=== PATIENT | female | born 1945 | race Caucasian/White ===

== ENCOUNTER 2017-12-15 16:49 | Inpatient (IN) | payer MEDICARE ==
[~2017-12-15] VITALS: Ht 167.6 cm; Wt 120.5 kg
[2017-12-15] VITALS (24 sets, daily range): BP systolic 83–126; BP diastolic 46–74; BMI 31.5
[2017-12-15 17:51] LABS: BASOPHILS 0.1 % (0-2); EOSINOPHILS 0 % (0-7); HEMATOCRIT 33.1 % (36.0-48.0); HEMOGLOBIN 10.9 g/dL (12-16); LYMPHOCYTES 19.1 % (15-50); MCH 32.6 pg (26.0-34.0); MCHC 32.9 g/dL (31.0-37.0); MCV 99.1 fL (80.0-100.0); MEAN PLATELET VOLUME 8.9 fL (7.4-10.4); MONOCYTES 11.9 % (2-11); NEUTROPHILS 67.9 % (40-80); PLATELET COUNT 111 10x3/uL (130-400); RBC 3.34 10x6/uL (4.00-5.40); RDW 14.3 % (11.5-14.5); WBC 19.9 10x3/uL (4.8-10.8)
[2017-12-15 18:06] LABS: ALKALINE PHOSPHATASE 39 U/L (46-116); ALT (SGPT) 13 U/L (10-68); CALC OSMOLALITY 284 mosm/kg (275-300); CALCIUM 9.3 mg/dL (8.5-10.1); CARBON DIOXIDE 30.6 mmol/L (21.0-32.0); CHLORIDE - SERUM 101 mmol/L (98-107); CREATININE - SERUM 1.3 mg/dL (0.6-1.3); GLUCOSE 122 mg/dL (74-106); POTASSIUM - SERUM 5.1 mmol/L (3.5-5.1); SODIUM 137 mmol/L (136-145); UREA NITROGEN 41 mg/dL (7-18); eGFR NON AFRICAN AMERICAN 42 mL/min (90-120)
[2017-12-15 18:18] LABS: CKMB 5.8 U/L (0.0-3.6); CREATINE KINASE 785 UL (21-215); PRO BNP 757 pg/mL (0-125)
[2017-12-15 18:29] LABS: TROPONIN-I < 0.017 ng/mL (0.000-0.060)
[2017-12-15 21:00] LABS: APPEARANCE CLEAR (CLEAR); BILIRUBIN NEGATIVE (NEGATIVE); COLOR YELLOW (YELLOW); GLUCOSE NEGATIVE (NEGATIVE); KETONE NEGATIVE (NEGATIVE); NITRITE NEGATIVE (NEGATIVE); PROTEIN NEGATIVE (NEGATIVE); UROBILINOGEN NORMAL (NORMAL)
[2017-12-16] VITALS (78 sets, daily range): BP systolic 90–137; BP diastolic 45–97; Ht 167.6 cm; Wt 120.5 kg
[2017-12-16 05:23] LABS: BASOPHILS 0.1 % (0-2); EOSINOPHILS 0 % (0-7); HEMATOCRIT 32.4 % (36.0-48.0); HEMOGLOBIN 10.3 g/dL (12-16); IMMATURE GRANULOCYTES 1.3 % (0-5); LYMPHOCYTES 13.7 % (15-50); MCH 31.8 pg (26.0-34.0); MCHC 31.8 g/dL (31.0-37.0); NEUTROPHILS 74.9 % (40-80); PLATELET COUNT 127 10x3/uL (130-400); RBC 3.24 10x6/uL (4.00-5.40); RDW 14.1 % (11.5-14.5); WBC 15.2 10x3/uL (4.8-10.8)
[2017-12-16 05:31] LABS: INR 1.29 (0.85-1.17); PROTIME 15.7 SECONDS (11.6-15.0)
[2017-12-16 05:52] LABS: % SATURATION 6 % (15-55); IRON 15 ug/dl (35-150); TOTAL IRON BIND CAPACITY 215 ug/dl (260-445); UNSAT IRON BIND CAPACITY 200 ug/dl (150-375)
[2017-12-16 05:56] LABS: ALBUMIN 1.9 g/dL (3.4-5.0); ALKALINE PHOSPHATASE 38 U/L (46-116); ALT (SGPT) 14 U/L (10-68); BILIRUBIN - TOTAL 0.49 mg/dL (0.2-1.3); CALC OSMOLALITY 281 mosm/kg (275-300); CALCIUM 9.5 mg/dL (8.5-10.1); CARBON DIOXIDE 31.7 mmol/L (21.0-32.0); CHLORIDE - SERUM 101 mmol/L (98-107); FERRITIN 447 ng/mL (3-244); GLUCOSE 117 mg/dL (74-106); LDH 160 U/L (81-234); MAGNESIUM - SERUM 1.9 mg/dL (1.8-2.4); PHOSPHOROUS 3.7 mg/dL (2.5-4.9); PROTEIN - SERUM 6.1 g/dL (6.4-8.2); SODIUM 137 mmol/L (136-145); THYROID STIMULATING HORMONE 1.74 uIU/mL (0.36-3.74); UREA NITROGEN 33 mg/dL (7-18); eGFR NON AFRICAN AMERICAN 87 mL/min (90-120)
[2017-12-16 05:57] LABS: CREATININE - SERUM 0.7 mg/dL (0.6-1.3)
[2017-12-17] VITALS (19 sets, daily range): BP systolic 93–153; BP diastolic 38–108
[2017-12-17 04:50] LABS: BASOPHILS 0 % (0-2); EOSINOPHILS 0.1 % (0-7); HEMATOCRIT 27.2 % (36.0-48.0); HEMOGLOBIN 8.5 g/dL (12-16); IMMATURE GRANULOCYTES 0.8 % (0-5); LYMPHOCYTES 37.1 % (15-50); MCH 31.7 pg (26.0-34.0); MCHC 31.3 g/dL (31.0-37.0); MCV 101.5 fL (80.0-100.0); MEAN PLATELET VOLUME 8.9 fL (7.4-10.4); MONOCYTES 9.1 % (2-11); NEUTROPHILS 52.9 % (40-80); RBC 2.68 10x6/uL (4.00-5.40); RDW 14.2 % (11.5-14.5)
[2017-12-17 05:04] LABS: CALCIUM 9.4 mg/dL (8.5-10.1); CHLORIDE - SERUM 105 mmol/L (98-107); GLUCOSE 76 mg/dL (74-106); POTASSIUM - SERUM 4.5 mmol/L (3.5-5.1); SODIUM 139 mmol/L (136-145)
[2017-12-17 05:06] LABS: PLATELET COUNT 94 10x3/uL (130-400); WBC 8.7 10x3/uL (4.8-10.8)
[2017-12-17 05:16] LABS: CALC OSMOLALITY 279 mosm/kg (275-300); CREATININE - SERUM 0.5 mg/dL (0.6-1.3); UREA NITROGEN 21 mg/dL (7-18); eGFR NON AFRICAN AMERICAN > 90 mL/min (90-120)
[2017-12-17 05:59] LABS: PLATELET ESTIMATE DECREASED
[2017-12-17] MEDS ORDERED: NORVASC2.5 MG PO (10:11)
[2017-12-17] MEDS ORDERED: LISINOPRIL5 MG PO (10:11)
[2017-12-17] MEDS ORDERED: PROTONIX40 MG PO (10:12)
[2017-12-17] MEDS ORDERED: RISPERDAL3 MG PO (10:12)
[2017-12-17] MEDS ORDERED: SEROQUEL100 MG PO (10:13)
[2017-12-17] MEDS ORDERED: DEPAKOTE500 MG PO ×2 (10:15→10:27)
[2017-12-17] MEDS ORDERED: NOVOLOG100 U/M1 SC (10:17)
[2017-12-17] MEDS ORDERED: CLARITIN 10 MG10 MG PO (10:18)
[2017-12-17] MEDS ORDERED: GLIPIZIDE10 MG PO (10:18)
[2017-12-17] MEDS ORDERED: ACETAMINOPHEN325 MG PO (10:19)
[2017-12-17] MEDS ORDERED: MUCINEX600 MG PO (10:19)
[2017-12-17] MEDS ORDERED: PROVENTIL/2.5 MG/3 M INH (10:20)
[2017-12-17] MEDS ORDERED: ANUSOL-HC 2.5%30 GM TOPICAL (10:21)
[2017-12-17] MEDS ORDERED: IPRAT-ALBUT 0.5-3 ML UPD (10:22)
[2017-12-17] MEDS ORDERED: ATROVENT HFA12.9 GM INH (10:22)
[2017-12-17] MEDS ORDERED: VENTOLIN HFA18 GM INH (10:23)
[2017-12-17] MEDS ORDERED: CELEXA10 MG PO (10:23)
[2017-12-17] MEDS ORDERED: DESERYL100 MG PO (10:24)
[2017-12-17] MEDS ORDERED: FUROSEMIDE20 MG PO (10:24)
[2017-12-18] VITALS: BP 110/50
[2017-12-18 04:00] VITALS: BP 105/44
[2017-12-18 04:18] LABS: BASOPHILS 0.2 % (0-2); EOSINOPHILS 0.5 % (0-7); HEMATOCRIT 25.2 % (36.0-48.0); HEMOGLOBIN 7.8 g/dL (12-16); IMMATURE GRANULOCYTES 0.5 % (0-5); LYMPHOCYTES 56.1 % (15-50); MCV 103.3 fL (80.0-100.0); MEAN PLATELET VOLUME 8.6 fL (7.4-10.4); MONOCYTES 6.6 % (2-11); NEUTROPHILS 36.1 % (40-80); PLATELET COUNT 88 10x3/uL (130-400); RBC 2.44 10x6/uL (4.00-5.40); RDW 14.1 % (11.5-14.5)
[2017-12-18 04:19] LABS: WBC 5.8 10x3/uL (4.8-10.8)
[2017-12-18 04:35] LABS: ALBUMIN 1.5 g/dL (3.4-5.0); ALKALINE PHOSPHATASE 32 U/L (46-116); ALT (SGPT) 14 U/L (10-68); CALC OSMOLALITY 285 mosm/kg (275-300); CARBON DIOXIDE 34.2 mmol/L (21.0-32.0); CHLORIDE - SERUM 107 mmol/L (98-107); CREATININE - SERUM 0.5 mg/dL (0.6-1.3); GLUCOSE 83 mg/dL (74-106); INR 1.23 (0.85-1.17); LDH 108 U/L (81-234); MAGNESIUM - SERUM 1.6 mg/dL (1.8-2.4); PHOSPHOROUS 2.9 mg/dL (2.5-4.9); POTASSIUM - SERUM 4.1 mmol/L (3.5-5.1); PROTEIN - SERUM 4.8 g/dL (6.4-8.2); PROTIME 15.1 SECONDS (11.6-15.0); SODIUM 144 mmol/L (136-145); UREA NITROGEN 13 mg/dL (7-18); eGFR NON AFRICAN AMERICAN > 90 mL/min (90-120)
[2017-12-18 04:36] LABS: APTT 43.1 SECONDS (22.8-39.4); D-DIMER-QUANTITATIVE 0.63 ug/mLFEU (0.20-0.54)
[2017-12-18 07:53] VITALS: BP 118/52
[2017-12-18 11:00] VITALS: BP 116/45
[2017-12-18 14:19] LABS: FUNGUS STAIN Final report (())
[2017-12-18 16:18] VITALS: BP 121/56
[2017-12-18 17:12] LABS: AFB SPECIMEN PROCESSING Concentration (())
[2017-12-18 21:05] VITALS: BP 135/77
[2017-12-19 05:20] VITALS: BP 111/61
[2017-12-19 05:27] LABS: BASOPHILS 0.2 % (0-2); EOSINOPHILS 1.4 % (0-7); HEMOGLOBIN 9.2 g/dL (12-16); LYMPHOCYTES 58.6 % (15-50); MCH 30.9 pg (26.0-34.0); MCHC 30.7 g/dL (31.0-37.0); MEAN PLATELET VOLUME 8.4 fL (7.4-10.4); MONOCYTES 7.9 % (2-11); NEUTROPHILS 30.9 % (40-80); PLATELET COUNT 94 10x3/uL (130-400); RDW 15.4 % (11.5-14.5); WBC 5.8 10x3/uL (4.8-10.8)
[2017-12-19 05:34] LABS: MCV 100.7 fL (80.0-100.0); RBC 2.98 10x6/uL (4.00-5.40)
[2017-12-19 05:35] LABS: CALC OSMOLALITY 282 mosm/kg (275-300); CALCIUM 8.7 mg/dL (8.5-10.1); CARBON DIOXIDE 34.8 mmol/L (21.0-32.0); CHLORIDE - SERUM 106 mmol/L (98-107); GLUCOSE 79 mg/dL (74-106); POTASSIUM - SERUM 4.1 mmol/L (3.5-5.1); SODIUM 143 mmol/L (136-145); UREA NITROGEN 11 mg/dL (7-18)
[2017-12-19 05:36] LABS: CREATININE - SERUM 0.3 mg/dL (0.6-1.3); eGFR NON AFRICAN AMERICAN > 90 mL/min (90-120)
[2017-12-19 07:34] VITALS: BP 120/61
[2017-12-19 11:00] VITALS: BP 116/64
[2017-12-19 15:13] VITALS: BP 122/68
[2017-12-19 20:00] VITALS: BP 142/73
[2017-12-20 04:00] VITALS: BP 137/57
[2017-12-20 05:26] LABS: BASOPHILS 0.5 % (0-2); EOSINOPHILS 2.4 % (0-7); HEMATOCRIT 30.7 % (36.0-48.0); HEMOGLOBIN 9.5 g/dL (12-16); IMMATURE GRANULOCYTES 0.9 % (0-5); LYMPHOCYTES 57.8 % (15-50); MCH 31.3 pg (26.0-34.0); MCHC 30.9 g/dL (31.0-37.0); MEAN PLATELET VOLUME 8.9 fL (7.4-10.4); MONOCYTES 9.2 % (2-11); NEUTROPHILS 29.2 % (40-80); PLATELET COUNT 96 10x3/uL (130-400); RBC 3.04 10x6/uL (4.00-5.40); RDW 14.6 % (11.5-14.5); WBC 5.7 10x3/uL (4.8-10.8)
[2017-12-20 05:49] LABS: CALCIUM 8.5 mg/dL (8.5-10.1); CARBON DIOXIDE 35.4 mmol/L (21.0-32.0); CHLORIDE - SERUM 106 mmol/L (98-107); GLUCOSE 73 mg/dL (74-106); POTASSIUM - SERUM 3.8 mmol/L (3.5-5.1); SODIUM 144 mmol/L (136-145)
[2017-12-20 05:50] LABS: CALC OSMOLALITY 283 mosm/kg (275-300); CREATININE - SERUM 0.4 mg/dL (0.6-1.3); UREA NITROGEN 8 mg/dL (7-18); eGFR NON AFRICAN AMERICAN > 90 mL/min (90-120)
[2017-12-20 07:35] VITALS: BP 141/67
[2017-12-20 16:17] VITALS: BP 136/64
[2017-12-20 20:00] VITALS: BP 123/61
[2017-12-21 04:00] VITALS: BP 109/55
[2017-12-21 05:03] LABS: BASOPHILS 0.1 % (0-2); EOSINOPHILS 3.3 % (0-7); HEMATOCRIT 33.9 % (36.0-48.0); HEMOGLOBIN 10.6 g/dL (12-16); IMMATURE GRANULOCYTES 0.4 % (0-5); LYMPHOCYTES 50.8 % (15-50); MCH 31.7 pg (26.0-34.0); MCHC 31.3 g/dL (31.0-37.0); MCV 101.5 fL (80.0-100.0); MEAN PLATELET VOLUME 8.5 fL (7.4-10.4); MONOCYTES 10.3 % (2-11); NEUTROPHILS 35.1 % (40-80); PLATELET COUNT 113 10x3/uL (130-400); RBC 3.34 10x6/uL (4.00-5.40); RDW 14.3 % (11.5-14.5); WBC 6.7 10x3/uL (4.8-10.8)
[2017-12-21 05:27] LABS: INR 1.07 (0.85-1.17); PROTIME 13.5 SECONDS (11.6-15.0)
[2017-12-21 05:35] LABS: CALC OSMOLALITY 281 mosm/kg (275-300); CARBON DIOXIDE 38.5 mmol/L (21.0-32.0); CHLORIDE - SERUM 104 mmol/L (98-107); CREATININE - SERUM 0.4 mg/dL (0.6-1.3); GLUCOSE 77 mg/dL (74-106); LDH 118 U/L (81-234); POTASSIUM - SERUM 3.8 mmol/L (3.5-5.1); PROTEIN - SERUM 5.2 g/dL (6.4-8.2); SODIUM 143 mmol/L (136-145); UREA NITROGEN 7 mg/dL (7-18); eGFR NON AFRICAN AMERICAN > 90 mL/min (90-120)
[2017-12-21 05:43] LABS: APTT 21.7 SECONDS (22.8-39.4)
[2017-12-21 08:35] VITALS: BP 105/57
[2017-12-21 15:34] VITALS: BP 122/64
[2017-12-21 15:40] LABS: PROTEIN - BODY FLUID 2.2 G/DL
[2017-12-21 18:54] LABS: EOS BF 3 %; MACROPHAGES BF 9 %; MESOTHELIALS BF 4 %; NEUT - BF 8 %
[2017-12-21 19:00] VITALS: BP 121/58
[2017-12-22 04:00] VITALS: BP 152/66
[2017-12-22 04:45] LABS: BASOPHILS 0.1 % (0-2); EOSINOPHILS 2.8 % (0-7); HEMATOCRIT 32.1 % (36.0-48.0); HEMOGLOBIN 10.1 g/dL (12-16); IMMATURE GRANULOCYTES 0.4 % (0-5); LYMPHOCYTES 54.5 % (15-50); MCH 31.4 pg (26.0-34.0); MCHC 31.5 g/dL (31.0-37.0); MCV 99.7 fL (80.0-100.0); MEAN PLATELET VOLUME 8.8 fL (7.4-10.4); MONOCYTES 7.5 % (2-11); NEUTROPHILS 34.7 % (40-80); PLATELET COUNT 129 10x3/uL (130-400); RBC 3.22 10x6/uL (4.00-5.40); RDW 14.2 % (11.5-14.5); WBC 7.2 10x3/uL (4.8-10.8)
[2017-12-22 05:01] LABS: ALBUMIN 1.8 g/dL (3.4-5.0); ALKALINE PHOSPHATASE 64 U/L (46-116); ALT (SGPT) 17 U/L (10-68); BILIRUBIN - TOTAL 0.33 mg/dL (0.2-1.3); CALC OSMOLALITY 278 mosm/kg (275-300); CARBON DIOXIDE 38.7 mmol/L (21.0-32.0); CHLORIDE - SERUM 102 mmol/L (98-107); CREATININE - SERUM 0.5 mg/dL (0.6-1.3); GLUCOSE 89 mg/dL (74-106); POTASSIUM - SERUM 3.6 mmol/L (3.5-5.1); PROTEIN - SERUM 5.4 g/dL (6.4-8.2); SODIUM 141 mmol/L (136-145); eGFR NON AFRICAN AMERICAN > 90 mL/min (90-120)
[2017-12-22 05:08] LABS: UREA NITROGEN 11 mg/dL (7-18)
[2017-12-22 08:27] VITALS: BP 116/56
[2017-12-22 11:46] VITALS: BP 122/60
[2017-12-22 15:34] VITALS: BP 130/75
[2017-12-22 20:00] VITALS: BP 120/62
[2017-12-23] VITALS: BP 132/57
[2017-12-23 04:00] VITALS: BP 111/83
[2017-12-23 04:55] LABS: BASOPHILS 0.2 % (0-2); EOSINOPHILS 3.5 % (0-7); HEMATOCRIT 33.9 % (36.0-48.0); HEMOGLOBIN 10.5 g/dL (12-16); IMMATURE GRANULOCYTES 0.5 % (0-5); LYMPHOCYTES 59.8 % (15-50); MCH 31.7 pg (26.0-34.0); MEAN PLATELET VOLUME 8.7 fL (7.4-10.4); MONOCYTES 9.4 % (2-11); NEUTROPHILS 26.6 % (40-80); PLATELET COUNT 148 10x3/uL (130-400); RBC 3.31 10x6/uL (4.00-5.40); RDW 14.2 % (11.5-14.5); WBC 6.6 10x3/uL (4.8-10.8)
[2017-12-23 05:07] LABS: MCV 102.4 fL (80.0-100.0)
[2017-12-23 05:09] LABS: ALKALINE PHOSPHATASE 63 U/L (46-116); ALT (SGPT) 15 U/L (10-68); CALC OSMOLALITY 287 mosm/kg (275-300); CALCIUM 9.3 mg/dL (8.5-10.1); CARBON DIOXIDE 38.4 mmol/L (21.0-32.0); CHLORIDE - SERUM 104 mmol/L (98-107); CREATININE - SERUM 0.5 mg/dL (0.6-1.3); GLUCOSE 92 mg/dL (74-106); POTASSIUM - SERUM 3.6 mmol/L (3.5-5.1); PROTEIN - SERUM 5.6 g/dL (6.4-8.2); SODIUM 145 mmol/L (136-145); UREA NITROGEN 9 mg/dL (7-18); eGFR NON AFRICAN AMERICAN > 90 mL/min (90-120)
[2017-12-23 07:49] VITALS: BP 122/63
[2017-12-23 11:15] VITALS: BP 147/83
[2017-12-23 15:14] VITALS: BP 127/58
[2017-12-23 17:11] LABS: AFB SPECIMEN PROCESSING Not Indicated (())
[2017-12-23 20:00] VITALS: BP 101/56
[2017-12-24 04:00] VITALS: BP 98/57
[2017-12-24 05:46] LABS: BASOPHILS 0.1 % (0-2); EOSINOPHILS 2.6 % (0-7); HEMATOCRIT 33.4 % (36.0-48.0); HEMOGLOBIN 10.5 g/dL (12-16); IMMATURE GRANULOCYTES 0.3 % (0-5); LYMPHOCYTES 59.2 % (15-50); MCH 31.6 pg (26.0-34.0); MCHC 31.4 g/dL (31.0-37.0); MCV 100.6 fL (80.0-100.0); MEAN PLATELET VOLUME 8.9 fL (7.4-10.4); MONOCYTES 8.7 % (2-11); NEUTROPHILS 29.1 % (40-80); PLATELET COUNT 149 10x3/uL (130-400); RBC 3.32 10x6/uL (4.00-5.40); RDW 14.1 % (11.5-14.5)
[2017-12-24 05:58] LABS: ALKALINE PHOSPHATASE 99 U/L (46-116); CALC OSMOLALITY 281 mosm/kg (275-300); CARBON DIOXIDE 37.5 mmol/L (21.0-32.0); CHLORIDE - SERUM 99 mmol/L (98-107); CREATININE - SERUM 0.5 mg/dL (0.6-1.3); GLUCOSE 91 mg/dL (74-106); POTASSIUM - SERUM 3.3 mmol/L (3.5-5.1); PROTEIN - SERUM 5.7 g/dL (6.4-8.2); SODIUM 142 mmol/L (136-145); UREA NITROGEN 9 mg/dL (7-18); eGFR NON AFRICAN AMERICAN > 90 mL/min (90-120)
[2017-12-24 06:07] LABS: ALT (SGPT) 25 U/L (10-68)
[2017-12-24 07:38] VITALS: BP 109/59
[2017-12-24 11:14] VITALS: BP 103/64
[2017-12-24 11:19] LABS: FOLATE (FOLIC ACID) - SERUM 6.7 ng/mL (>3.0)
[2017-12-24 15:23] VITALS: BP 109/60
[2017-12-24 20:00] VITALS: BP 98/50
[2017-12-25 04:00] VITALS: BP 92/51
[2017-12-25 05:41] LABS: BASOPHILS 0.1 % (0-2); EOSINOPHILS 2.1 % (0-7); HEMATOCRIT 34.8 % (36.0-48.0); HEMOGLOBIN 10.7 g/dL (12-16); IMMATURE GRANULOCYTES 0.3 % (0-5); LYMPHOCYTES 46.5 % (15-50); MCH 31.2 pg (26.0-34.0); MCHC 30.7 g/dL (31.0-37.0); MCV 101.5 fL (80.0-100.0); MEAN PLATELET VOLUME 8.9 fL (7.4-10.4); MONOCYTES 7.1 % (2-11); NEUTROPHILS 43.9 % (40-80); PLATELET COUNT 139 10x3/uL (130-400); RBC 3.43 10x6/uL (4.00-5.40); RDW 14.2 % (11.5-14.5); WBC 7.7 10x3/uL (4.8-10.8)
[2017-12-25 06:02] LABS: ALBUMIN 2.1 g/dL (3.4-5.0); ALKALINE PHOSPHATASE 81 U/L (46-116); BILIRUBIN - TOTAL 0.38 mg/dL (0.2-1.3); CARBON DIOXIDE 39.8 mmol/L (21.0-32.0); CHLORIDE - SERUM 101 mmol/L (98-107); CREATININE - SERUM 0.6 mg/dL (0.6-1.3); POTASSIUM - SERUM 3.9 mmol/L (3.5-5.1); PROTEIN - SERUM 5.8 g/dL (6.4-8.2); SODIUM 144 mmol/L (136-145); eGFR NON AFRICAN AMERICAN > 90 mL/min (90-120)
[2017-12-25 06:03] LABS: ALT (SGPT) 14 U/L (10-68); CALC OSMOLALITY 290 mosm/kg (275-300); GLUCOSE 148 mg/dL (74-106); UREA NITROGEN 14 mg/dL (7-18)
[2017-12-25 09:26] VITALS: BP 115/60
[2017-12-25 12:03] VITALS: BP 120/70
[2017-12-25 15:57] VITALS: BP 120/76
[2017-12-25 20:00] VITALS: BP 111/70
[2017-12-26] VITALS: BP 115/60
[2017-12-26 04:00] VITALS: BP 104/47
[2017-12-26 05:24] LABS: BASOPHILS 0.2 % (0-2); EOSINOPHILS 2.3 % (0-7); HEMATOCRIT 31.8 % (36.0-48.0); HEMOGLOBIN 9.8 g/dL (12-16); IMMATURE GRANULOCYTES 0.2 % (0-5); LYMPHOCYTES 63.5 % (15-50); MCH 31.3 pg (26.0-34.0); MCHC 30.8 g/dL (31.0-37.0); MCV 101.6 fL (80.0-100.0); NEUTROPHILS 27.8 % (40-80); PLATELET COUNT 144 10x3/uL (130-400); RBC 3.13 10x6/uL (4.00-5.40); RDW 14.3 % (11.5-14.5); WBC 8.2 10x3/uL (4.8-10.8)
[2017-12-26 05:48] LABS: ALKALINE PHOSPHATASE 68 U/L (46-116); ALT (SGPT) 12 U/L (10-68); BILIRUBIN - TOTAL 0.35 mg/dL (0.2-1.3); CALCIUM 9.4 mg/dL (8.5-10.1); CARBON DIOXIDE 39.7 mmol/L (21.0-32.0); CHLORIDE - SERUM 100 mmol/L (98-107); POTASSIUM - SERUM 3.7 mmol/L (3.5-5.1); PROTEIN - SERUM 5.6 g/dL (6.4-8.2); SODIUM 142 mmol/L (136-145)
[2017-12-26 05:49] LABS: CALC OSMOLALITY 284 mosm/kg (275-300); CREATININE - SERUM 0.4 mg/dL (0.6-1.3); GLUCOSE 100 mg/dL (74-106); UREA NITROGEN 18 mg/dL (7-18); eGFR NON AFRICAN AMERICAN > 90 mL/min (90-120)
[2017-12-26 08:07] VITALS: BP 126/72
[2017-12-26 12:13] VITALS: BP 112/65
[2017-12-26 17:23] VITALS: BP 99/55
[2017-12-26 21:24] VITALS: BP 93/43
[2017-12-27 07:57] VITALS: BP 121/59
[2017-12-27 11:23] VITALS: BP 117/61
[2017-12-27] MEDS ORDERED: K-TAB10 MEQ PO (13:56)
[2017-12-27] MEDS ORDERED: BUMEX 1 MG TAB1 MG PO (13:56)
[2017-12-27] MEDS ORDERED: PULMICORT0.5 MG/21 UPD (13:56)
[2017-12-27] MEDS ORDERED: BROVANA15 MCG/2 M INH (13:57)
[2017-12-27] MEDS ORDERED: DIFLUCAN100 MG PO (13:58)
[2017-12-27 21:12] VITALS: BP 101/56
[2017-12-28 01:18] VITALS: BP 104/53
[2017-12-28 05:50] VITALS: BP 96/52
[2017-12-28 07:40] VITALS: BP 108/62
[2017-12-28 10:44] VITALS: BP 102/59
[2017-12-30 11:21] LABS: FUNGUS STAIN Final report (())
[2018-01-14 08:19] LABS: FUNGUS MYCOLOGY CULTURE Final report (())
[2018-01-25 12:10] LABS: FUNGUS MYCOLOGY CULTURE Final report (())
[2018-02-10 12:18] LABS: ACID FAST CULTURE Negative (()); ACID FAST SMEAR Negative (())
[2018-02-10 13:19] LABS: ACID FAST CULTURE Negative (()); ACID FAST SMEAR Negative (())
== END 2017-12-28 17:53 | DRG 853 ==
LOC: D.M2 16:49 → D.ICU 16:49 → D.M2 12-17 16:48
PROVIDERS: Family Medicine; Internal Medicine Nephrology; Internal Medicine Pulmonary Disease
PROC: 5A09357 Assistance with Respiratory Ventilation, Less than 24 Consecutive Hours, Continuous Positive Airway Pressure (ICD-10-PCS; principal; 2017-12-15)
PROC: 0BC Respiratory System, Extirpation (ICD-10-PCS; 2017-12-16)
PROC: 05HY33Z Insertion of Infusion Device into Upper Vein, Percutaneous Approach (ICD-10-PCS; 2017-12-17)
PROC: 0W9B3ZZ Drainage of Left Pleural Cavity, Percutaneous Approach (ICD-10-PCS; 2017-12-21)
DX: A41.9 Sepsis, unspecified organism (principal); J18.9 Pneumonia, unspecified organism; R65.21 Severe sepsis with septic shock; G93.41 Metabolic encephalopathy; J96.01 Acute respiratory failure with hypoxia; J96.02 Acute respiratory failure with hypercapnia; N17.9 Acute kidney failure, unspecified; T17.590A Other foreign object in bronchus causing asphyxiation, initial encounter; J44.1 Chronic obstructive pulmonary disease with (acute) exacerbation; J44.0 Chronic obstructive pulmonary disease with (acute) lower respiratory infection; J98.11 Atelectasis; E11.9 Type 2 diabetes mellitus without complications; I11.0 Hypertensive heart disease with heart failure; I50.9 Heart failure, unspecified; Z66 Do not resuscitate; F03.90 Unspecified dementia, unspecified severity, without behavioral disturbance, psychotic disturbance, mood disturbance, and anxiety; E86.0 Dehydration; D69.6 Thrombocytopenia, unspecified; I48.91 Unspecified atrial fibrillation; L89.152 Pressure ulcer of sacral region, stage 2; D50.9 Iron deficiency anemia, unspecified; I48.0 Paroxysmal atrial fibrillation; I27.20 Pulmonary hypertension, unspecified; D53.9 Nutritional anemia, unspecified